=== PATIENT | female | born 1955 | race African-American/Black ===

== ENCOUNTER 2021-11-05 12:35 | Inpatient (IN) | payer MEDICAID, OTHER ==
[~2021-11-05] VITALS: Ht 168.9 cm; Wt 158.3 kg
[2021-11-05 14:00] LABS: Basophils # (auto) 0 10 ^3/uL (0-0.2); Basophils % (auto) 0.8 % (0.0-2.0); Hemoglobin 9.6 g/dL (12.2-16.2); Mean Corpuscular Volume 85.6 fL (80.0-100.0); Monocytes # (auto) 0.5 10 ^3/uL (0-1.3)
[2021-11-05 14:02] LABS: Eosinophils # (auto) 0.1 10 ^3/uL (0-0.8); Eosinophils % (auto) 0.9 % (0.0-7.0); Hematocrit 30.4 % (36.0-46.0); Lymphocytes # (auto) 1.4 10 ^3/uL (0.4-5.4); Lymphocytes % (auto) 24.4 % (10.0-50.0); Mean Corpuscular Hemoglobin 27.1 pg (28.0-32.0); Mean Corpuscular Hgb Conc. 31.7 g/dL (32.0-36.0); Monocytes % (auto) 8.4 % (0.0-12.0); Neutrophils # (auto) 3.7 10 ^3/uL (1.6-8.6); Neutrophils % (auto) 65.5 % (37.0-80.0); Nucleated Red Blood Cells % 0.5 %; Red Blood Cells 3.55 10^6/uL (4.0-5.20); Red Cell Distribution Width 19.4 % (11.8-14.3); White Blood Cell 5.7 10^3/uL (4.4-10.8)
[2021-11-05 14:12] LABS: INR 1.32 (0.9-1.15); Partial Thromboplastin Time 30.2 sec (23.6-33.0)
[2021-11-05 14:15] LABS: Calcium 8.3 mg/dL (8.5-10.1); Potassium 3.3 mmol/L (3.5-5.1)
[2021-11-05 14:18] LABS: Albumin 2.6 g/dL (3.4-5.0); BUN/Creatinine Ratio 10.7; Magnesium 2.9 mg/dL (1.6-2.6)
[2021-11-05 14:23] LABS: Bilirubin, Total 0.9 mg/dL (0.2-1.0); Total Protein 7.8 g/dL (6.4-8.2)
[2021-11-05] MEDS ORDERED: cefTRIAXone 1GM/50ML D5W 50 ML IV ONE (14:45)
[2021-11-05] MEDS ORDERED: AZITHROMYCIN 500MG/ 250ML 250 ML IV ONE (15:30)
[2021-11-05] MEDS ORDERED: MORPHINE SULFATE INJECTION 2 MG/ML SYRG IV PRN (17:15)
[2021-11-05] MEDS ORDERED: NITROGLYCERIN 0.4 MG SL TAB SL PRN (17:15)
[2021-11-05] MEDS ORDERED: HYDROcodone-ACET 5/325MG TAB PO PRN (17:15)
[2021-11-05] MEDS ORDERED: POTASSIUM CHL 20 Meq TABLET PO ONE (18:00)
[2021-11-05] MEDS ORDERED: DEXTROSE (50%) 50ML SYRG IV PRN (18:00)
[2021-11-05 18:33] VITALS: BP 183/112
[2021-11-05] MEDS: FUROSEMIDE 100 MG/10ML VIAL IV SCH (18:40)
[2021-11-05] MEDS: HYDROcodone-ACET 10/325MG TAB PO PRN (18:55)
[2021-11-05] MEDS: ACCU-CHEK COMFORT CURVE STRIP VI SCH (21:41)
[2021-11-05] MEDS: InsuLIN REG 1unit/0.01ml Soln (100units/ml) SC SCH (21:41)
[2021-11-05] MEDS ORDERED: ONDANSETRON HCL 4 MG/2 ML VIAL ONE (23:00)
[2021-11-05] MEDS: ONDANSETRON HCL 4 MG/2 ML VIAL IV PRN (23:16)
[2021-11-05] MEDS: MORPHINE SULFATE 4 MG/ML SYR/VIAL IV PRN (23:22)
[2021-11-06] MEDS: FUROSEMIDE 100 MG/10ML VIAL IV SCH ×2 (05:31→18:04)
[2021-11-06] MEDS: MORPHINE SULFATE 4 MG/ML SYR/VIAL IV PRN ×2 (05:34→19:28)
[2021-11-06 05:54] VITALS: BP 154/100
[2021-11-06 06:05] VITALS: BP 154/100
[2021-11-06] MEDS: ACCU-CHEK COMFORT CURVE STRIP VI SCH ×4 (06:12→22:00)
[2021-11-06] MEDS: InsuLIN REG 1unit/0.01ml Soln (100units/ml) SC SCH ×4 (06:12→22:00)
[2021-11-06] MEDS ORDERED: HYDROcodone-ACET 10/325MG TAB PO PRN (07:00)
[2021-11-06] MEDS ORDERED: INSULIN LISPRO (HUMAN) 100 UNITS/ML ML SC ONE (07:00)
[2021-11-06] MEDS ORDERED: hydrALAZINE HCL 25 MG TAB PO PRN (07:00)
[2021-11-06 08:00] VITALS: BP 147/82
[2021-11-06] MEDS: CLOPIDOGREL BISULFATE 75 MG TAB PO SCH (09:50)
[2021-11-06] MEDS: ASPirin 81 mg TAB PO SCH (09:50)
[2021-11-06] MEDS ORDERED: LOSARTAN POTASSIUM 50 MG TAB PO SCH (10:00)
[2021-11-06] MEDS ORDERED: cloNIDine HCL 0.1 MG TAB PO SCH (10:00)
[2021-11-06] MEDS ORDERED: FUROSEMIDE 40 MG TAB PO SCH (10:00)
[2021-11-06] MEDS ORDERED: PANTOPRAZOLE 40 MG TAB PO SCH (10:00)
[2021-11-06] MEDS ORDERED: CLOPIDOGREL BISULFATE 75 MG TAB PO SCH (10:00)
[2021-11-06] MEDS ORDERED: MORPHINE SULF 30 mg ER tab PO SCH (10:00)
[2021-11-06] MEDS ORDERED: QUEtiapine FUMARATE 100 MG TAB PO SCH (10:00)
[2021-11-06] MEDS ORDERED: ASPirin 81 mg TAB PO SCH (10:00)
[2021-11-06] MEDS: ONDANSETRON HCL 4 MG/2 ML VIAL IV PRN ×4 (10:44→18:04)
[2021-11-06] MEDS: AMITRIPTYLINE HCL 25 MG TAB PO SCH (10:48)
[2021-11-06] MEDS ORDERED: ALBU108A5 PO (10:49)
[2021-11-06] MEDS ORDERED: DICL1GEL50 TOP (10:49)
[2021-11-06] MEDS ORDERED: FURO40TA4 PO (10:49)
[2021-11-06] MEDS ORDERED: NICO14DI29 TOP (10:49)
[2021-11-06] MEDS ORDERED: HYDR-4798 PO (10:49)
[2021-11-06] MEDS ORDERED: QUET400T13 PO (10:49)
[2021-11-06] MEDS: ENOXAPARIN SOD 30 MG/0.3 ML SYRINGE SC SCH (10:49)
[2021-11-06] MEDS ORDERED: AMIT-256 PO (10:49)
[2021-11-06] MEDS ORDERED: INSU100I27 SC (10:49)
[2021-11-06] MEDS ORDERED: MORP30TA5 PO (10:49)
[2021-11-06] MEDS ORDERED: LOSA-69 PO (10:49)
[2021-11-06] MEDS ORDERED: ASPI-498 PO (10:49)
[2021-11-06] MEDS ORDERED: INSU1INJ19 SC (10:49)
[2021-11-06] MEDS ORDERED: CLOP75TA70 PO (10:49)
[2021-11-06] MEDS ORDERED: PANT40T PO (10:49)
[2021-11-06] MEDS ORDERED: MOME220A INH (10:49)
[2021-11-06] MEDS ORDERED: HYDR50TA15 PO (10:49)
[2021-11-06] MEDS ORDERED: CLON0.1T PO (10:49)
[2021-11-06] MEDS: ATORVASTATIN 20 MG TAB PO SCH (10:49)
[2021-11-06] MEDS ORDERED: ATOR40TA52 PO (10:49)
[2021-11-06 12:02] LABS: Basophils # (auto) 0.1 10 ^3/uL (0-0.2); Basophils % (auto) 1.1 % (0.0-2.0); Eosinophils # (auto) 0.1 10 ^3/uL (0-0.8); Eosinophils % (auto) 1.2 % (0.0-7.0); Hematocrit 29.6 % (36.0-46.0); Hemoglobin 9.6 g/dL (12.2-16.2); Lymphocytes # (auto) 1.7 10 ^3/uL (0.4-5.4); Lymphocytes % (auto) 32.8 % (10.0-50.0); Mean Corpuscular Hemoglobin 27.5 pg (28.0-32.0); Mean Corpuscular Hgb Conc. 32.3 g/dL (32.0-36.0); Mean Corpuscular Volume 85.1 fL (80.0-100.0); Monocytes # (auto) 0.6 10 ^3/uL (0-1.3); Monocytes % (auto) 10.6 % (0.0-12.0); Neutrophils # (auto) 2.9 10 ^3/uL (1.6-8.6); Neutrophils % (auto) 54.3 % (37.0-80.0); Nucleated Red Blood Cells % 0.5 %; Red Blood Cells 3.48 10^6/uL (4.0-5.20); Red Cell Distribution Width 19.4 % (11.8-14.3); White Blood Cell 5.3 10^3/uL (4.4-10.8)
[2021-11-06 12:16] LABS: Albumin 2.6 g/dL (3.4-5.0); Calcium 8.6 mg/dL (8.5-10.1); Potassium 4.2 mmol/L (3.5-5.1)
[2021-11-06 12:18] LABS: BUN/Creatinine Ratio 10.5
[2021-11-06 12:20] LABS: Bilirubin, Total 0.9 mg/dL (0.2-1.0); Total Protein 7.6 g/dL (6.4-8.2)
[2021-11-06 16:00] VITALS: BP 149/58
[2021-11-06 17:00] VITALS: BP 157/83
[2021-11-06 22:00] VITALS: BP 154/104
[2021-11-07 05:00] VITALS: BP 138/84
[2021-11-07] MEDS: MORPHINE SULFATE 4 MG/ML SYR/VIAL IV PRN ×2 (06:04→15:59)
[2021-11-07] MEDS: FUROSEMIDE 100 MG/10ML VIAL IV SCH ×2 (06:05→18:32)
[2021-11-07] MEDS: ACCU-CHEK COMFORT CURVE STRIP VI SCH ×3 (06:24→17:58)
[2021-11-07] MEDS: InsuLIN REG 1unit/0.01ml Soln (100units/ml) SC SCH ×4 (06:42→23:29)
[2021-11-07 07:54] VITALS: BP 160/105
[2021-11-07] MEDS: ASPirin 81 mg TAB PO SCH (09:22)
[2021-11-07] MEDS: CLOPIDOGREL BISULFATE 75 MG TAB PO SCH (09:22)
[2021-11-07] MEDS: ATORVASTATIN 20 MG TAB PO SCH (09:26)
[2021-11-07] MEDS: ENOXAPARIN SOD 30 MG/0.3 ML SYRINGE SC SCH (09:27)
[2021-11-07] MEDS: AMITRIPTYLINE HCL 25 MG TAB PO SCH (09:37)
[2021-11-07] MEDS ORDERED: DOCUSATE SOD 100 MG CAP PO PRN (10:30)
[2021-11-07] MEDS ORDERED: cloNIDine HCL 0.1 MG TAB PO PRN ×2 (10:30→16:15)
[2021-11-07] MEDS: LOSARTAN POTASSIUM 50 MG TAB PO SCH (11:00)
[2021-11-07] MEDS ORDERED: hydrALAZINE HCL 25 MG TAB PO SCH (12:00)
[2021-11-07 13:19] VITALS: BP 149/85
[2021-11-07 16:00] VITALS: BP 143/73
[2021-11-07] MEDS ORDERED: LABETALOL HCL 200 MG TAB PO SCH (16:00)
[2021-11-07] MEDS ORDERED: cloNIDine HCL 0.1 MG TAB PO ONE (16:00)
[2021-11-07] MEDS ORDERED: hydrALAZINE HCL 25 MG TAB PO PRN (18:00)
[2021-11-07] MEDS: hydrALAZINE HCL 25 MG TAB PO SCH (18:32)
[2021-11-07 22:00] VITALS: BP 146/90
[2021-11-07] MEDS: HYDROcodone-ACET 10/325MG TAB PO PRN (22:37)
[2021-11-08] VITALS: BP 158/101
[2021-11-08] MEDS: hydrALAZINE HCL 25 MG TAB PO SCH ×4 (00:37→17:16)
[2021-11-08] MEDS: MORPHINE SULFATE 4 MG/ML SYR/VIAL IV PRN ×5 (04:06→20:58)
[2021-11-08 05:00] VITALS: BP 147/93
[2021-11-08] MEDS: FUROSEMIDE 100 MG/10ML VIAL IV SCH ×2 (06:32→17:15)
[2021-11-08] MEDS: InsuLIN REG 1unit/0.01ml Soln (100units/ml) SC SCH ×3 (07:14→17:48)
[2021-11-08] MEDS: ASPirin 81 mg TAB PO SCH (08:40)
[2021-11-08] MEDS: ATORVASTATIN 20 MG TAB PO SCH (08:42)
[2021-11-08] MEDS: LOSARTAN POTASSIUM 50 MG TAB PO SCH (08:42)
[2021-11-08] MEDS: AMITRIPTYLINE HCL 25 MG TAB PO SCH (08:42)
[2021-11-08] MEDS: CLOPIDOGREL BISULFATE 75 MG TAB PO SCH ×2 (08:42→10:30)
[2021-11-08] MEDS: ENOXAPARIN SOD 30 MG/0.3 ML SYRINGE SC SCH (08:43)
[2021-11-08 09:00] VITALS: BP 180/100
[2021-11-08] MEDS ORDERED: cloNIDine HCL 0.1 MG TAB PO PRN (10:30)
[2021-11-08] MEDS ORDERED: LOSARTAN POTASSIUM 25 MG TAB PO ONE (10:30)
[2021-11-08] MEDS ORDERED: PANTOPRAZOLE 40 MG/10 ML VIAL INJ IV ONE (10:30)
[2021-11-08] MEDS: ACCU-CHEK COMFORT CURVE STRIP VI SCH ×3 (12:19→23:25)
[2021-11-08 13:00] VITALS: BP 163/95
[2021-11-08] MEDS: ONDANSETRON HCL 4 MG/2 ML VIAL IV PRN (15:08)
[2021-11-08 16:56] VITALS: BP 163/101
[2021-11-08] MEDS ORDERED: hydrALAZINE HCL 25 MG TAB PO SCH (18:00)
[2021-11-08 22:00] VITALS: BP 158/89
[2021-11-09] VITALS (7 sets, daily range): BP systolic 143–151; BP diastolic 80–99
[2021-11-09] MEDS: InsuLIN REG 1unit/0.01ml Soln (100units/ml) SC SCH ×3 (00:29→12:45)
[2021-11-09] MEDS: hydrALAZINE HCL 25 MG TAB PO SCH ×3 (00:29→12:45)
[2021-11-09] MEDS: FUROSEMIDE 100 MG/10ML VIAL IV SCH ×2 (06:00→06:34)
[2021-11-09] MEDS: ACCU-CHEK COMFORT CURVE STRIP VI SCH ×2 (07:18→12:45)
[2021-11-09] MEDS: MORPHINE SULFATE 4 MG/ML SYR/VIAL IV PRN (08:46)
[2021-11-09] MEDS: ASPirin 81 mg TAB PO SCH (09:43)
[2021-11-09] MEDS: CLOPIDOGREL BISULFATE 75 MG TAB PO SCH (09:44)
[2021-11-09] MEDS: ATORVASTATIN 20 MG TAB PO SCH (09:44)
[2021-11-09] MEDS: ENOXAPARIN SOD 30 MG/0.3 ML SYRINGE SC SCH (09:44)
[2021-11-09] MEDS: AMITRIPTYLINE HCL 25 MG TAB PO SCH (09:45)
[2021-11-09] MEDS ORDERED: PANTOPRAZOLE 40 MG/10 ML VIAL INJ IV SCH (10:00)
[2021-11-09] MEDS ORDERED: LOSARTAN POTASSIUM 50 MG TAB PO SCH (10:00)
== END 2021-11-09 12:45 | disposition home or self-care (01) | DRG 194 ==
LOC: EDBD 12:35 → ER 12:55 → TELE 17:14 → TELE-WESTW 11-06 04:50
PROVIDERS: ADMIT Internal Medicine; ATTEND Family Medicine
PROC: 5A09357 Assistance with Respiratory Ventilation, Less than 24 Consecutive Hours, Continuous Positive Airway Pressure (ICD-10-PCS; principal; 2021-11-05)
DX: I13.0 Hypertensive heart and chronic kidney disease with heart failure and stage 1 through stage 4 chronic kidney disease, or unspecified chronic kidney disease (principal); J96.01 Acute respiratory failure with hypoxia; N17.9 Acute kidney failure, unspecified; E44.0 Moderate protein-calorie malnutrition; E87.1 Hypo-osmolality and hyponatremia; D68.59 Other primary thrombophilia; I27.20 Pulmonary hypertension, unspecified; I50.43 Acute on chronic combined systolic (congestive) and diastolic (congestive) heart failure; N18.9 Chronic kidney disease, unspecified; E87.6 Hypokalemia; I16.0 Hypertensive urgency; E66.01 Morbid (severe) obesity due to excess calories; Z68.43 Body mass index [BMI] 50.0-59.9, adult; D64.9 Anemia, unspecified; E11.22 Type 2 diabetes mellitus with diabetic chronic kidney disease; Z20.822 Contact with and (suspected) exposure to COVID-19; F32.A Depression, unspecified; G89.4 Chronic pain syndrome; I25.10 Atherosclerotic heart disease of native coronary artery without angina pectoris; I34.0 Nonrheumatic mitral (valve) insufficiency; K21.9 Gastro-esophageal reflux disease without esophagitis; Z79.01 Long term (current) use of anticoagulants; Z91.14 Patient's other noncompliance with medication regimen
CPT/HCPCS: 36415; 36600; 51702; 71045; 80053; 82805; 82962; 83036; 83735; 83880; 84484; 85025; 85610; 85730; 87426; 93005; 93306; 94660; 96365; 96367; 99291; C9113; G0378; J0696; J1815; J2405

== ENCOUNTER 2021-11-11 23:33 | Inpatient (IN) | payer MEDICAID ==
[~2021-11-11] VITALS: Ht 172.7 cm; Wt 136.9 kg
[~2021-11-11 23:33] MED LIST: ALBU108A5 PO; AMIT-256 PO; ASPI-498 PO; ATOR40TA52 PO; CLON0.1T PO; CLOP75TA70 PO; DICL1GEL50 TOP; FURO40TA4 PO; HYDR-4798 PO; HYDR50TA15 PO; INSU100I27 SC; INSU1INJ19 SC; LOSA-69 PO; MOME220A INH; MORP30TA5 PO; NICO14DI29 TOP; PANT40T PO; QUET400T13 PO
[2021-11-12 01:28] LABS: Basophils # (auto) 0.1 10 ^3/uL (0-0.2); Basophils % (auto) 1.1 % (0.0-2.0); Eosinophils # (auto) 0.1 10 ^3/uL (0-0.8); Eosinophils % (auto) 1.9 % (0.0-7.0); Hematocrit 28.9 % (36.0-46.0); Hemoglobin 9.4 g/dL (12.2-16.2); Lymphocytes # (auto) 1.3 10 ^3/uL (0.4-5.4); Lymphocytes % (auto) 21.9 % (10.0-50.0); Mean Corpuscular Hgb Conc. 32.4 g/dL (32.0-36.0); Mean Corpuscular Volume 83.5 fL (80.0-100.0); Monocytes # (auto) 0.7 10 ^3/uL (0-1.3); Monocytes % (auto) 11.2 % (0.0-12.0); Neutrophils # (auto) 3.9 10 ^3/uL (1.6-8.6); Neutrophils % (auto) 63.9 % (37.0-80.0); Nucleated Red Blood Cells % 0.2 %; Red Blood Cells 3.47 10^6/uL (4.0-5.20); Red Cell Distribution Width 19.5 % (11.8-14.3); White Blood Cell 6.1 10^3/uL (4.4-10.8)
[2021-11-12] MEDS ORDERED: FUROSEMIDE 100 MG/10ML VIAL IV ONE ×2 (01:45→21:45)
[2021-11-12] MEDS ORDERED: HYDROcodone-ACET 5/325MG TAB PO ONE ×4 (01:45→20:00)
[2021-11-12] MEDS ORDERED: MAGNESIUM CITRATE SOLUTION 300 ML BTL PO ONE (01:45)
[2021-11-12 01:52] LABS: Urine Bacteria NONE SEEN /hpf (None Seen); Urine Blood Negative /uL (Negative); Urine Specific Gravity 1.006 (1.001-1.035); Urine WBC <1 /hpf (0 - 5)
[2021-11-12 03:24] LABS: Albumin 2.8 g/dL (3.4-5.0); BUN/Creatinine Ratio 10.2
[2021-11-12 04:22] LABS: Bilirubin, Total 0.8 mg/dL (0.2-1.0); Total Protein 8.2 g/dL (6.4-8.2)
[2021-11-12] MEDS ORDERED: POLYETHYLENE GLYCOL 17 GM PWDR PO ONE (06:00)
[2021-11-13] MEDS ORDERED: MORPHINE SULFATE INJECTION 2 MG/ML SYRG IV PRN (09:00)
[2021-11-13] MEDS ORDERED: ACETAMINOPHEN 325 MG TAB PO PRN ×2 (09:00)
[2021-11-13] MEDS ORDERED: ONDANSETRON HCL 4 MG/2 ML VIAL IV PRN (09:00)
[2021-11-13] MEDS ORDERED: NITROGLYCERIN 0.4 MG SL TAB SL PRN (09:00)
[2021-11-13] MEDS ORDERED: DEXTROSE (50%) 50ML SYRG IV PRN (09:30)
[2021-11-13] MEDS: HEPARIN SODIUM (PORCINE) 5000 UNITS/ML 1ML VIAL SC SCH ×2 (09:35→23:24)
[2021-11-13] MEDS: PANTOPRAZOLE 40 MG/10 ML VIAL INJ IV SCH (09:36)
[2021-11-13] MEDS: AZITHROMYCIN 500MG/ 250ML 250 ML IV SCH (09:36)
[2021-11-13] MEDS ORDERED: ALBUTEROL SULF 2.5 MG/0.5ML(0.5%) NEB SOLN NEB PRN (09:45)
[2021-11-13] MEDS ORDERED: ALBUTEROL SULF 2.5 MG/0.5ML(0.5%) NEB SOLN ONE (09:57)
[2021-11-13] MEDS ORDERED: FUROSEMIDE 40 MG/4 ML VIAL IV SCH (10:00)
[2021-11-13] MEDS ORDERED: LOSARTAN POTASSIUM 50 MG TAB PO SCH (10:00)
[2021-11-13] MEDS: ACCU-CHEK COMFORT CURVE STRIP VI SCH ×3 (11:30→23:24)
[2021-11-13] MEDS: InsuLIN REG 1unit/0.01ml Soln (100units/ml) SC SCH ×3 (11:30→23:25)
[2021-11-13] MEDS: ASPirin 81 mg TAB PO SCH (11:45)
[2021-11-13] MEDS: LABETALOL HCL 200 MG TAB PO SCH ×2 (11:45→23:23)
[2021-11-13] MEDS: CLOPIDOGREL BISULFATE 75 MG TAB PO SCH (11:46)
[2021-11-13] MEDS: HYDROcodone-ACET 5/325MG TAB PO PRN (11:52)
[2021-11-13] MEDS ORDERED: hydrALAZINE HCL 25 MG TAB PO SCH (12:00)
[2021-11-13 13:12] VITALS: BP 141/91
[2021-11-13 13:46] VITALS: BP 141/91
[2021-11-13] MEDS: SODIUM CHLOR 0.9% PF (SALINE LOCK) 10ML VIAL/SYR IV SCH ×2 (14:00→23:20)
[2021-11-13 14:12] VITALS: BP 141/91
[2021-11-13 14:29] VITALS: BP 144/90
[2021-11-13 16:53] VITALS: BP 159/77
[2021-11-13] MEDS: FUROSEMIDE 100 MG/10ML VIAL IV SCH (18:52)
[2021-11-13 22:00] VITALS: BP 137/72
[2021-11-13] MEDS: AMITRIPTYLINE HCL 25 MG TAB PO SCH (23:20)
[2021-11-13] MEDS: SACUBITRIL-VALSARTAN 24mg/26mg TAB PO SCH (23:22)
[2021-11-13] MEDS: ATORVASTATIN 20 MG TAB PO SCH (23:23)
[2021-11-14 05:00] VITALS: BP 123/72
[2021-11-14] MEDS: SODIUM CHLOR 0.9% PF (SALINE LOCK) 10ML VIAL/SYR IV SCH ×3 (05:12→22:23)
[2021-11-14] MEDS ORDERED: SODIUM CHLORIDE 0.9 % NEB SOLN 3ML NEB ONE (05:37)
[2021-11-14 06:00] LABS: Basophils # (auto) 0 10 ^3/uL (0-0.2); Basophils % (auto) 1.1 % (0.0-2.0); Eosinophils # (auto) 0.1 10 ^3/uL (0-0.8); Hematocrit 28.2 % (36.0-46.0); Hemoglobin 9.1 g/dL (12.2-16.2); Lymphocytes # (auto) 1.6 10 ^3/uL (0.4-5.4); Lymphocytes % (auto) 36.1 % (10.0-50.0); Mean Corpuscular Hgb Conc. 32.2 g/dL (32.0-36.0); Mean Corpuscular Volume 83.9 fL (80.0-100.0); Monocytes # (auto) 0.5 10 ^3/uL (0-1.3); Monocytes % (auto) 11.7 % (0.0-12.0); Neutrophils # (auto) 2.1 10 ^3/uL (1.6-8.6); Neutrophils % (auto) 48.1 % (37.0-80.0); Nucleated Red Blood Cells % 0.1 %; Red Blood Cells 3.36 10^6/uL (4.0-5.20); Red Cell Distribution Width 19.4 % (11.8-14.3); White Blood Cell 4.4 10^3/uL (4.4-10.8)
[2021-11-14 06:27] LABS: Calcium 8.8 mg/dL (8.5-10.1); Potassium 4.2 mmol/L (3.5-5.1)
[2021-11-14 06:30] LABS: Albumin 2.5 g/dL (3.4-5.0); BUN/Creatinine Ratio 10.8
[2021-11-14] MEDS: FUROSEMIDE 100 MG/10ML VIAL IV SCH (06:30)
[2021-11-14] MEDS: ACCU-CHEK COMFORT CURVE STRIP VI SCH ×4 (06:31→22:25)
[2021-11-14 06:33] LABS: Bilirubin, Total 0.6 mg/dL (0.2-1.0); Total Protein 7.5 g/dL (6.4-8.2)
[2021-11-14] MEDS: HYDROcodone-ACET 5/325MG TAB PO PRN ×2 (06:43→22:27)
[2021-11-14] MEDS: InsuLIN REG 1unit/0.01ml Soln (100units/ml) SC SCH ×4 (06:47→22:32)
[2021-11-14 09:00] VITALS: BP 123/77
[2021-11-14] MEDS: cefTRIAXone 1GM/50ML D5W 50 ML IV SCH (09:31)
[2021-11-14] MEDS: PANTOPRAZOLE 40 MG/10 ML VIAL INJ IV SCH (09:31)
[2021-11-14] MEDS: CLOPIDOGREL BISULFATE 75 MG TAB PO SCH (09:32)
[2021-11-14] MEDS: LABETALOL HCL 200 MG TAB PO SCH ×2 (09:32→22:25)
[2021-11-14] MEDS: ASPirin 81 mg TAB PO SCH (09:32)
[2021-11-14] MEDS: SACUBITRIL-VALSARTAN 24mg/26mg TAB PO SCH ×2 (09:32→22:23)
[2021-11-14] MEDS: HEPARIN SODIUM (PORCINE) 5000 UNITS/ML 1ML VIAL SC SCH ×2 (09:33→22:32)
[2021-11-14] MEDS: AZITHROMYCIN 500MG/ 250ML 250 ML IV SCH (10:39)
[2021-11-14 13:00] VITALS: BP 113/82
[2021-11-14 13:40] LABS: Protein, Urine 69.7 mg/dL (0.0-11.9)
[2021-11-14 13:42] LABS: Creatinine, Urine 34 mg/dL (30.0-125.0); Sodium Urine 61 mmol/L (40-220)
[2021-11-14 17:00] VITALS: BP 135/80
[2021-11-14] MEDS: MORPHINE SULFATE 4 MG/ML SYR/VIAL IV PRN (17:09)
[2021-11-14] MEDS: FUROSEMIDE 40 MG/4 ML VIAL IV SCH (17:09)
[2021-11-14 22:16] VITALS: BP 123/87
[2021-11-14] MEDS: AMITRIPTYLINE HCL 25 MG TAB PO SCH (22:23)
[2021-11-14] MEDS: ATORVASTATIN 20 MG TAB PO SCH (22:23)
[2021-11-15] MEDS: MORPHINE SULFATE 4 MG/ML SYR/VIAL IV PRN ×4 (01:04→21:32)
[2021-11-15 04:22] VITALS: BP 117/75
[2021-11-15] MEDS: SODIUM CHLOR 0.9% PF (SALINE LOCK) 10ML VIAL/SYR IV SCH ×3 (04:50→22:44)
[2021-11-15] MEDS: ACCU-CHEK COMFORT CURVE STRIP VI SCH ×4 (04:50→22:43)
[2021-11-15] MEDS: FUROSEMIDE 40 MG/4 ML VIAL IV SCH ×2 (04:51→18:29)
[2021-11-15] MEDS: InsuLIN REG 1unit/0.01ml Soln (100units/ml) SC SCH ×4 (05:09→22:42)
[2021-11-15 06:40] LABS: Basophils # (auto) 0.1 10 ^3/uL (0-0.2); Lymphocytes # (auto) 1.7 10 ^3/uL (0.4-5.4); Monocytes # (auto) 0.5 10 ^3/uL (0-1.3)
[2021-11-15 06:42] LABS: Basophils % (auto) 1.2 % (0.0-2.0); Eosinophils # (auto) 0.1 10 ^3/uL (0-0.8); Eosinophils % (auto) 3.5 % (0.0-7.0); Hematocrit 29.4 % (36.0-46.0); Hemoglobin 9.5 g/dL (12.2-16.2); Lymphocytes % (auto) 40.9 % (10.0-50.0); Mean Corpuscular Hemoglobin 27.1 pg (28.0-32.0); Mean Corpuscular Hgb Conc. 32.5 g/dL (32.0-36.0); Mean Corpuscular Volume 83.4 fL (80.0-100.0); Monocytes % (auto) 11.7 % (0.0-12.0); Neutrophils # (auto) 1.8 10 ^3/uL (1.6-8.6); Neutrophils % (auto) 42.7 % (37.0-80.0); Nucleated Red Blood Cells % 0.1 %; Red Blood Cells 3.53 10^6/uL (4.0-5.20); White Blood Cell 4.3 10^3/uL (4.4-10.8)
[2021-11-15 07:00] LABS: Albumin 2.7 g/dL (3.4-5.0); Calcium 8.5 mg/dL (8.5-10.1); Potassium 3.9 mmol/L (3.5-5.1)
[2021-11-15 07:02] LABS: BUN/Creatinine Ratio 11.6
[2021-11-15 07:05] LABS: Bilirubin, Total 0.5 mg/dL (0.2-1.0); Total Protein 7.9 g/dL (6.4-8.2)
[2021-11-15 09:00] VITALS: BP 123/82
[2021-11-15] MEDS: PANTOPRAZOLE 40 MG/10 ML VIAL INJ IV SCH (09:33)
[2021-11-15] MEDS: ASPirin 81 mg TAB PO SCH (09:33)
[2021-11-15] MEDS: LABETALOL HCL 200 MG TAB PO SCH ×2 (09:34→22:00)
[2021-11-15] MEDS: CLOPIDOGREL BISULFATE 75 MG TAB PO SCH (09:34)
[2021-11-15] MEDS: SACUBITRIL-VALSARTAN 24mg/26mg TAB PO SCH ×2 (09:34→22:33)
[2021-11-15] MEDS: HEPARIN SODIUM (PORCINE) 5000 UNITS/ML 1ML VIAL SC SCH ×2 (09:36→22:50)
[2021-11-15] MEDS: cefTRIAXone 1GM/50ML D5W 50 ML IV SCH (09:36)
[2021-11-15] MEDS: AZITHROMYCIN 500MG/ 250ML 250 ML IV SCH (09:36)
[2021-11-15] MEDS: DOCUSATE SOD 100 MG CAP PO PRN (09:38)
[2021-11-15] MEDS: FERROUS SULFATE 325mg EC TAB PO SCH (09:45)
[2021-11-15] MEDS: ALLOPURINOL 100 MG TAB PO SCH (09:45)
[2021-11-15 10:46] LABS: % Iron Saturation 8.2 % (15-50)
[2021-11-15 13:00] VITALS: BP 128/83
[2021-11-15 17:00] VITALS: BP 113/73
[2021-11-15 22:00] VITALS: BP 98/60
[2021-11-15] MEDS: ATORVASTATIN 20 MG TAB PO SCH (22:34)
[2021-11-15] MEDS: AMITRIPTYLINE HCL 25 MG TAB PO SCH (22:43)
[2021-11-16] MEDS: MORPHINE SULFATE 4 MG/ML SYR/VIAL IV PRN ×5 (01:43→20:00)
[2021-11-16 03:55] VITALS: BP 118/70
[2021-11-16 05:00] VITALS: BP 139/139
[2021-11-16 05:47] LABS: Basophils # (auto) 0.1 10 ^3/uL (0-0.2); Basophils % (auto) 1.4 % (0.0-2.0); Eosinophils # (auto) 0.1 10 ^3/uL (0-0.8); Hematocrit 29.9 % (36.0-46.0); Hemoglobin 10.2 g/dL (12.2-16.2); Lymphocytes # (auto) 1.6 10 ^3/uL (0.4-5.4); Lymphocytes % (auto) 37.6 % (10.0-50.0); Mean Corpuscular Hemoglobin 28.5 pg (28.0-32.0); Mean Corpuscular Hgb Conc. 34.1 g/dL (32.0-36.0); Mean Corpuscular Volume 83.7 fL (80.0-100.0); Monocytes # (auto) 0.5 10 ^3/uL (0-1.3); Monocytes % (auto) 11.5 % (0.0-12.0); Neutrophils # (auto) 1.9 10 ^3/uL (1.6-8.6); Neutrophils % (auto) 46.5 % (37.0-80.0); Nucleated Red Blood Cells % 0.2 %; Red Blood Cells 3.57 10^6/uL (4.0-5.20); White Blood Cell 4.2 10^3/uL (4.4-10.8)
[2021-11-16 06:13] LABS: Albumin 2.7 g/dL (3.4-5.0); Calcium 8.3 mg/dL (8.5-10.1)
[2021-11-16 06:18] LABS: BUN/Creatinine Ratio 11.7; Bilirubin, Total 0.5 mg/dL (0.2-1.0)
[2021-11-16] MEDS: FUROSEMIDE 40 MG/4 ML VIAL IV SCH ×2 (06:20→18:05)
[2021-11-16] MEDS: InsuLIN REG 1unit/0.01ml Soln (100units/ml) SC SCH ×4 (06:21→22:00)
[2021-11-16] MEDS: SODIUM CHLOR 0.9% PF (SALINE LOCK) 10ML VIAL/SYR IV SCH ×3 (06:21→22:00)
[2021-11-16] MEDS: ACCU-CHEK COMFORT CURVE STRIP VI SCH ×4 (06:21→22:00)
[2021-11-16] MEDS: cefTRIAXone 1GM/50ML D5W 50 ML IV SCH (08:46)
[2021-11-16] MEDS: PANTOPRAZOLE 40 MG/10 ML VIAL INJ IV SCH (08:47)
[2021-11-16] MEDS: ASPirin 81 mg TAB PO SCH (08:48)
[2021-11-16] MEDS: CLOPIDOGREL BISULFATE 75 MG TAB PO SCH (08:48)
[2021-11-16] MEDS: SACUBITRIL-VALSARTAN 24mg/26mg TAB PO SCH ×2 (08:48→22:00)
[2021-11-16] MEDS: ALLOPURINOL 100 MG TAB PO SCH (08:48)
[2021-11-16] MEDS: FERROUS SULFATE 325mg EC TAB PO SCH (08:48)
[2021-11-16] MEDS: LABETALOL HCL 200 MG TAB PO SCH ×2 (08:48→22:00)
[2021-11-16] MEDS: HYDROcodone-ACET 5/325MG TAB PO PRN ×2 (08:49→15:50)
[2021-11-16 09:00] VITALS: BP 150/117
[2021-11-16] MEDS: HEPARIN SODIUM (PORCINE) 5000 UNITS/ML 1ML VIAL SC SCH ×2 (09:05→22:00)
[2021-11-16] MEDS: AZITHROMYCIN 500MG/ 250ML 250 ML IV SCH (10:14)
[2021-11-16 13:00] VITALS: BP 134/96
[2021-11-16] MEDS: DOCUSATE SOD 100 MG CAP PO PRN (13:30)
[2021-11-16 17:00] VITALS: BP 144/94
[2021-11-16 22:00] VITALS: BP 158/93
[2021-11-16] MEDS: ATORVASTATIN 20 MG TAB PO SCH (22:00)
[2021-11-16] MEDS: AMITRIPTYLINE HCL 25 MG TAB PO SCH (22:00)
[2021-11-17] MEDS: MORPHINE SULFATE 4 MG/ML SYR/VIAL IV PRN ×4 (01:41→20:35)
[2021-11-17] MEDS: DOCUSATE SOD 100 MG CAP PO PRN (04:43)
[2021-11-17 05:00] VITALS: BP 163/84
[2021-11-17 06:15] LABS: Basophils # (auto) 0.1 10 ^3/uL (0-0.2); Basophils % (auto) 1.7 % (0.0-2.0); Eosinophils # (auto) 0.1 10 ^3/uL (0-0.8); Eosinophils % (auto) 2.6 % (0.0-7.0); Hematocrit 31.1 % (36.0-46.0); Lymphocytes # (auto) 1.5 10 ^3/uL (0.4-5.4); Lymphocytes % (auto) 35.1 % (10.0-50.0); Mean Corpuscular Hemoglobin 27.6 pg (28.0-32.0); Mean Corpuscular Hgb Conc. 32.2 g/dL (32.0-36.0); Mean Corpuscular Volume 85.7 fL (80.0-100.0); Monocytes # (auto) 0.5 10 ^3/uL (0-1.3); Neutrophils # (auto) 2.1 10 ^3/uL (1.6-8.6); Neutrophils % (auto) 48.6 % (37.0-80.0); Nucleated Red Blood Cells % 0.2 %; Red Blood Cells 3.63 10^6/uL (4.0-5.20); White Blood Cell 4.4 10^3/uL (4.4-10.8)
[2021-11-17] MEDS: SODIUM CHLOR 0.9% PF (SALINE LOCK) 10ML VIAL/SYR IV SCH ×3 (06:18→22:28)
[2021-11-17 06:19] LABS: Calcium 8.9 mg/dL (8.5-10.1); Potassium 3.6 mmol/L (3.5-5.1)
[2021-11-17] MEDS: FUROSEMIDE 40 MG/4 ML VIAL IV SCH ×2 (06:22→17:49)
[2021-11-17] MEDS: hydrALAZINE HCL 20 MG/ML VL IV PRN (06:22)
[2021-11-17 06:23] LABS: BUN/Creatinine Ratio 12.8; Bilirubin, Total 0.6 mg/dL (0.2-1.0); Total Protein 8.6 g/dL (6.4-8.2)
[2021-11-17] MEDS: InsuLIN REG 1unit/0.01ml Soln (100units/ml) SC SCH ×4 (06:53→22:22)
[2021-11-17] MEDS: ACCU-CHEK COMFORT CURVE STRIP VI SCH ×4 (07:03→22:00)
[2021-11-17 09:00] VITALS: BP 158/92
[2021-11-17] MEDS: FERROUS SULFATE 325mg EC TAB PO SCH (09:28)
[2021-11-17] MEDS: ASPirin 81 mg TAB PO SCH (09:28)
[2021-11-17] MEDS: PANTOPRAZOLE 40 MG/10 ML VIAL INJ IV SCH (09:28)
[2021-11-17] MEDS: cefTRIAXone 1GM/50ML D5W 50 ML IV SCH (09:28)
[2021-11-17] MEDS: SACUBITRIL-VALSARTAN 24mg/26mg TAB PO SCH ×2 (09:28→22:00)
[2021-11-17] MEDS: ALLOPURINOL 100 MG TAB PO SCH (09:29)
[2021-11-17] MEDS: LABETALOL HCL 200 MG TAB PO SCH ×2 (09:29→22:00)
[2021-11-17] MEDS: HEPARIN SODIUM (PORCINE) 5000 UNITS/ML 1ML VIAL SC SCH ×2 (09:29→22:00)
[2021-11-17] MEDS: CLOPIDOGREL BISULFATE 75 MG TAB PO SCH (09:29)
[2021-11-17] MEDS ORDERED: FLEET MINERAL OIL ENEMA 133 ML PR ONE (09:30)
[2021-11-17] MEDS: HYDROcodone-ACET 5/325MG TAB PO PRN (09:30)
[2021-11-17] MEDS: AZITHROMYCIN 500MG/ 250ML 250 ML IV SCH (10:00)
[2021-11-17 13:00] VITALS: BP 144/84
[2021-11-17 17:00] VITALS: BP 158/95
[2021-11-17 22:00] VITALS: BP 139/79
[2021-11-17] MEDS: TEMAZEPAM 15 MG CAP PO PRN (22:00)
[2021-11-17] MEDS: AMITRIPTYLINE HCL 25 MG TAB PO SCH (22:00)
[2021-11-17] MEDS: ATORVASTATIN 20 MG TAB PO SCH (22:00)
[2021-11-18] VITALS (10 sets, daily range): BP systolic 146–185; BP diastolic 72–106
[2021-11-18] MEDS: HYDROcodone-ACET 5/325MG TAB PO PRN (02:05)
[2021-11-18] MEDS: SODIUM CHLOR 0.9% PF (SALINE LOCK) 10ML VIAL/SYR IV SCH ×3 (06:13→22:24)
[2021-11-18] MEDS: FUROSEMIDE 40 MG/4 ML VIAL IV SCH ×2 (06:15→17:09)
[2021-11-18] MEDS: MORPHINE SULFATE 4 MG/ML SYR/VIAL IV PRN ×3 (06:15→20:58)
[2021-11-18] MEDS: InsuLIN REG 1unit/0.01ml Soln (100units/ml) SC SCH ×4 (06:50→22:27)
[2021-11-18] MEDS: ACCU-CHEK COMFORT CURVE STRIP VI SCH ×4 (06:50→22:26)
[2021-11-18 07:01] LABS: INR 1.26 (0.9-1.15); Partial Thromboplastin Time 31.6 sec (23.6-33.0)
[2021-11-18] MEDS: HEPARIN SODIUM (PORCINE) 5000 UNITS/ML 1ML VIAL SC SCH ×2 (10:00→22:26)
[2021-11-18] MEDS ORDERED: DOCUSATE ORAL LIQUID 100 MG/10 ML UD GT ONE ×2 (10:30→17:00)
[2021-11-18] MEDS ORDERED: SENNA 8.6 MG TAB PO ONE (10:30)
[2021-11-18] MEDS ORDERED: SENNA 8.6 MG TAB PO PRN (10:30)
[2021-11-18] MEDS: PANTOPRAZOLE 40 MG/10 ML VIAL INJ IV SCH (10:39)
[2021-11-18] MEDS ORDERED: IODIXANOL 320MG/ML 100ML BTL IV ONE (13:41)
[2021-11-18] MEDS ORDERED: LIDOCAINE 2%HCL (LOCAL ANESTH.) INJ 10ml MDV ONE ×2 (13:41→14:16)
[2021-11-18] MEDS ORDERED: SODIUM CHL 0.9% 0 ML ONE (14:03)
[2021-11-18] MEDS ORDERED: ANGIOMAX 250 MG VIAL IV ONE (14:03)
[2021-11-18] MEDS ORDERED: fentaNYL CITRATE 100 MCG/2 ML VL ONE ×2 (14:03→14:37)
[2021-11-18] MEDS ORDERED: MIDAZOLAM HCL 2MG/2ML 2ml VIAL (1mg/ml) ONE ×2 (14:03→14:39)
[2021-11-18] MEDS ORDERED: VERAPAMIL 2.5MG/ML INJ 2ML VIAL IV ONE (14:14)
[2021-11-18] MEDS ORDERED: HEPARIN SODIUM (PORCINE) 5000 UNITS/ML 1ML VIAL ONE (14:14)
[2021-11-18] MEDS: hydrALAZINE HCL 20 MG/ML VL IV PRN (15:51)
[2021-11-18] MEDS: ASPirin 81 mg TAB PO SCH (17:06)
[2021-11-18] MEDS: cefTRIAXone 1GM/50ML D5W 50 ML IV SCH (17:06)
[2021-11-18] MEDS: LABETALOL HCL 200 MG TAB PO SCH ×2 (17:07→22:25)
[2021-11-18] MEDS: FERROUS SULFATE 325mg EC TAB PO SCH (17:07)
[2021-11-18] MEDS: CLOPIDOGREL BISULFATE 75 MG TAB PO SCH (17:07)
[2021-11-18] MEDS: ALLOPURINOL 100 MG TAB PO SCH (17:07)
[2021-11-18] MEDS: SACUBITRIL-VALSARTAN 24mg/26mg TAB PO SCH ×2 (17:08→22:24)
[2021-11-18] MEDS: AZITHROMYCIN 500MG/ 250ML 250 ML IV SCH (20:36)
[2021-11-18] MEDS: AMITRIPTYLINE HCL 25 MG TAB PO SCH (22:24)
[2021-11-18] MEDS: ATORVASTATIN 20 MG TAB PO SCH (22:24)
[2021-11-19] MEDS: MORPHINE SULFATE 4 MG/ML SYR/VIAL IV PRN ×4 (01:13→20:00)
[2021-11-19 04:40] VITALS: BP 104/69
[2021-11-19 05:53] LABS: Basophils # (auto) 0 10 ^3/uL (0-0.2); Basophils % (auto) 0.4 % (0.0-2.0); Eosinophils # (auto) 0.1 10 ^3/uL (0-0.8); Eosinophils % (auto) 2.1 % (0.0-7.0); Hematocrit 29.2 % (36.0-46.0); Hemoglobin 9.4 g/dL (12.2-16.2); Lymphocytes # (auto) 1.6 10 ^3/uL (0.4-5.4); Lymphocytes % (auto) 32.9 % (10.0-50.0); Mean Corpuscular Hemoglobin 26.4 pg (28.0-32.0); Mean Corpuscular Hgb Conc. 32.1 g/dL (32.0-36.0); Monocytes # (auto) 0.7 10 ^3/uL (0-1.3); Monocytes % (auto) 14.8 % (0.0-12.0); Neutrophils # (auto) 2.4 10 ^3/uL (1.6-8.6); Neutrophils % (auto) 49.8 % (37.0-80.0); Nucleated Red Blood Cells % 0.2 %; Red Blood Cells 3.56 10^6/uL (4.0-5.20); Red Cell Distribution Width 19.1 % (11.8-14.3); White Blood Cell 4.8 10^3/uL (4.4-10.8)
[2021-11-19] MEDS: SODIUM CHLOR 0.9% PF (SALINE LOCK) 10ML VIAL/SYR IV SCH ×3 (06:07→22:02)
[2021-11-19] MEDS: FUROSEMIDE 40 MG/4 ML VIAL IV SCH ×2 (06:07→17:48)
[2021-11-19 06:15] LABS: Calcium 8.9 mg/dL (8.5-10.1); Potassium 3.7 mmol/L (3.5-5.1)
[2021-11-19 06:19] LABS: BUN/Creatinine Ratio 12.7
[2021-11-19] MEDS: InsuLIN REG 1unit/0.01ml Soln (100units/ml) SC SCH ×4 (06:34→22:25)
[2021-11-19] MEDS: ACCU-CHEK COMFORT CURVE STRIP VI SCH ×4 (06:36→22:26)
[2021-11-19 09:00] VITALS: BP 137/76
[2021-11-19] MEDS: DOCUSATE ORAL LIQUID 100 MG/10 ML UD GT SCH (09:20)
[2021-11-19] MEDS: PANTOPRAZOLE 40 MG/10 ML VIAL INJ IV SCH (09:20)
[2021-11-19] MEDS: SACUBITRIL-VALSARTAN 24mg/26mg TAB PO SCH ×2 (09:21→22:02)
[2021-11-19] MEDS: ASPirin 81 mg TAB PO SCH (09:21)
[2021-11-19] MEDS: FERROUS SULFATE 325mg EC TAB PO SCH (09:21)
[2021-11-19] MEDS: CLOPIDOGREL BISULFATE 75 MG TAB PO SCH (09:22)
[2021-11-19] MEDS: ALLOPURINOL 100 MG TAB PO SCH (09:22)
[2021-11-19] MEDS: LABETALOL HCL 200 MG TAB PO SCH ×2 (09:22→22:22)
[2021-11-19] MEDS: HEPARIN SODIUM (PORCINE) 5000 UNITS/ML 1ML VIAL SC SCH ×2 (09:24→22:26)
[2021-11-19 13:00] VITALS: BP 118/74
[2021-11-19 17:00] VITALS: BP 140/71
[2021-11-19] MEDS: cefTRIAXone 1GM/50ML D5W 50 ML IV SCH (17:47)
[2021-11-19] MEDS: AZITHROMYCIN 500MG/ 250ML 250 ML IV SCH (20:48)
[2021-11-19 22:00] VITALS: BP 97/58
[2021-11-19] MEDS: AMITRIPTYLINE HCL 25 MG TAB PO SCH (22:02)
[2021-11-19] MEDS: ATORVASTATIN 20 MG TAB PO SCH (22:03)
[2021-11-20] MEDS: MORPHINE SULFATE 4 MG/ML SYR/VIAL IV PRN ×6 (00:26→22:54)
[2021-11-20 05:00] VITALS: BP 141/80
[2021-11-20] MEDS: FUROSEMIDE 40 MG/4 ML VIAL IV SCH ×2 (05:54→17:33)
[2021-11-20] MEDS: SODIUM CHLOR 0.9% PF (SALINE LOCK) 10ML VIAL/SYR IV SCH ×3 (06:21→22:00)
[2021-11-20 06:56] LABS: Basophils # (auto) 0.1 10 ^3/uL (0-0.2); Eosinophils # (auto) 0.1 10 ^3/uL (0-0.8); Monocytes # (auto) 0.7 10 ^3/uL (0-1.3); Neutrophils # (auto) 1.7 10 ^3/uL (1.6-8.6); Nucleated Red Blood Cells % 0.3 %
[2021-11-20 06:59] LABS: Basophils % (auto) 1.3 % (0.0-2.0); Eosinophils % (auto) 2.5 % (0.0-7.0); Hematocrit 28.8 % (36.0-46.0); Hemoglobin 9.5 g/dL (12.2-16.2); Lymphocytes % (auto) 43.2 % (10.0-50.0); Mean Corpuscular Hemoglobin 27.1 pg (28.0-32.0); Mean Corpuscular Volume 82.1 fL (80.0-100.0); Monocytes % (auto) 16.3 % (0.0-12.0); Neutrophils % (auto) 36.7 % (37.0-80.0); Red Cell Distribution Width 19.6 % (11.8-14.3); White Blood Cell 4.6 10^3/uL (4.4-10.8)
[2021-11-20] MEDS: InsuLIN REG 1unit/0.01ml Soln (100units/ml) SC SCH ×4 (07:00→22:00)
[2021-11-20 07:08] LABS: BUN/Creatinine Ratio 12.1; Calcium 8.7 mg/dL (8.5-10.1); Potassium 3.5 mmol/L (3.5-5.1)
[2021-11-20] MEDS: ACCU-CHEK COMFORT CURVE STRIP VI SCH ×4 (07:12→22:00)
[2021-11-20 09:06] VITALS: BP 137/56
[2021-11-20] MEDS: DOCUSATE ORAL LIQUID 100 MG/10 ML UD GT SCH (10:09)
[2021-11-20] MEDS: PANTOPRAZOLE 40 MG/10 ML VIAL INJ IV SCH (10:09)
[2021-11-20] MEDS: SACUBITRIL-VALSARTAN 24mg/26mg TAB PO SCH ×2 (10:10→22:00)
[2021-11-20] MEDS: LABETALOL HCL 200 MG TAB PO SCH ×2 (10:10→22:00)
[2021-11-20] MEDS: FERROUS SULFATE 325mg EC TAB PO SCH (10:10)
[2021-11-20] MEDS: ASPirin 81 mg TAB PO SCH (10:10)
[2021-11-20] MEDS: ALLOPURINOL 100 MG TAB PO SCH (10:11)
[2021-11-20] MEDS: CLOPIDOGREL BISULFATE 75 MG TAB PO SCH (10:11)
[2021-11-20] MEDS: HEPARIN SODIUM (PORCINE) 5000 UNITS/ML 1ML VIAL SC SCH ×2 (10:12→22:00)
[2021-11-20 13:00] VITALS: BP 141/79
[2021-11-20 16:00] VITALS: BP 133/78
[2021-11-20] MEDS: cefTRIAXone 1GM/50ML D5W 50 ML IV SCH (17:25)
[2021-11-20] MEDS: AZITHROMYCIN 500MG/ 250ML 250 ML IV SCH (20:30)
[2021-11-20 22:00] VITALS: BP 110/77
[2021-11-20] MEDS: ATORVASTATIN 20 MG TAB PO SCH (22:00)
[2021-11-20] MEDS: AMITRIPTYLINE HCL 25 MG TAB PO SCH (22:00)
[2021-11-20] MEDS: TEMAZEPAM 15 MG CAP PO PRN (22:57)
[2021-11-21] MEDS: MORPHINE SULFATE 4 MG/ML SYR/VIAL IV PRN ×5 (03:27→22:40)
[2021-11-21] MEDS: SODIUM CHLOR 0.9% PF (SALINE LOCK) 10ML VIAL/SYR IV SCH ×3 (06:00→22:34)
[2021-11-21] MEDS: FUROSEMIDE 40 MG/4 ML VIAL IV SCH ×2 (06:35→17:40)
[2021-11-21] MEDS: InsuLIN REG 1unit/0.01ml Soln (100units/ml) SC SCH ×4 (06:36→22:49)
[2021-11-21] MEDS: ACCU-CHEK COMFORT CURVE STRIP VI SCH ×4 (06:36→22:36)
[2021-11-21 09:00] VITALS: BP 154/94
[2021-11-21] MEDS: DOCUSATE ORAL LIQUID 100 MG/10 ML UD GT SCH (09:06)
[2021-11-21] MEDS: ASPirin 81 mg TAB PO SCH (09:07)
[2021-11-21] MEDS: PANTOPRAZOLE 40 MG/10 ML VIAL INJ IV SCH (09:07)
[2021-11-21] MEDS: HEPARIN SODIUM (PORCINE) 5000 UNITS/ML 1ML VIAL SC SCH ×2 (09:08→22:37)
[2021-11-21] MEDS: LABETALOL HCL 200 MG TAB PO SCH ×2 (09:09→22:35)
[2021-11-21] MEDS: FERROUS SULFATE 325mg EC TAB PO SCH (09:09)
[2021-11-21] MEDS: SENNA 8.6 MG TAB PO SCH (09:10)
[2021-11-21] MEDS: SACUBITRIL-VALSARTAN 24mg/26mg TAB PO SCH ×2 (09:10→22:34)
[2021-11-21] MEDS: CLOPIDOGREL BISULFATE 75 MG TAB PO SCH (09:10)
[2021-11-21] MEDS: ALLOPURINOL 100 MG TAB PO SCH (09:10)
[2021-11-21] MEDS ORDERED: FLEET MINERAL OIL ENEMA 133 ML PR ONE (10:15)
[2021-11-21 13:00] VITALS: BP 160/96
[2021-11-21 17:00] VITALS: BP 131/73
[2021-11-21] MEDS: cefTRIAXone 1GM/50ML D5W 50 ML IV SCH (17:40)
[2021-11-21] MEDS: AZITHROMYCIN 500MG/ 250ML 250 ML IV SCH (20:24)
[2021-11-21 22:00] VITALS: BP 121/72
[2021-11-21] MEDS: AMITRIPTYLINE HCL 25 MG TAB PO SCH (22:34)
[2021-11-21] MEDS: ATORVASTATIN 20 MG TAB PO SCH (22:34)
[2021-11-22] MEDS: MORPHINE SULFATE 4 MG/ML SYR/VIAL IV PRN ×4 (03:34→22:28)
[2021-11-22 05:00] VITALS: BP 139/64
[2021-11-22] MEDS: ACCU-CHEK COMFORT CURVE STRIP VI SCH ×4 (06:06→22:17)
[2021-11-22] MEDS: FUROSEMIDE 40 MG/4 ML VIAL IV SCH ×2 (06:07→18:00)
[2021-11-22] MEDS: SODIUM CHLOR 0.9% PF (SALINE LOCK) 10ML VIAL/SYR IV SCH ×3 (06:07→22:15)
[2021-11-22 06:11] LABS: Basophils # (auto) 0.1 10 ^3/uL (0-0.2); Basophils % (auto) 2.5 % (0.0-2.0); Eosinophils # (auto) 0.1 10 ^3/uL (0-0.8); Eosinophils % (auto) 4.2 % (0.0-7.0); Hematocrit 29.9 % (36.0-46.0); Hemoglobin 9.9 g/dL (12.2-16.2); Lymphocytes # (auto) 1.5 10 ^3/uL (0.4-5.4); Lymphocytes % (auto) 43.5 % (10.0-50.0); Mean Corpuscular Hemoglobin 27.1 pg (28.0-32.0); Mean Corpuscular Volume 82.2 fL (80.0-100.0); Monocytes # (auto) 0.5 10 ^3/uL (0-1.3); Monocytes % (auto) 14.3 % (0.0-12.0); Neutrophils # (auto) 1.2 10 ^3/uL (1.6-8.6); Neutrophils % (auto) 35.5 % (37.0-80.0); Nucleated Red Blood Cells % 0.6 %; Red Blood Cells 3.64 10^6/uL (4.0-5.20); Red Cell Distribution Width 19.6 % (11.8-14.3); White Blood Cell 3.5 10^3/uL (4.4-10.8)
[2021-11-22] MEDS: InsuLIN REG 1unit/0.01ml Soln (100units/ml) SC SCH ×4 (06:22→22:12)
[2021-11-22 06:46] LABS: Potassium 3.5 mmol/L (3.5-5.1)
[2021-11-22 07:04] LABS: BUN/Creatinine Ratio 13.1; Calcium 8.4 mg/dL (8.5-10.1)
[2021-11-22 08:20] VITALS: BP 142/77
[2021-11-22] MEDS: SACUBITRIL-VALSARTAN 24mg/26mg TAB PO SCH ×2 (09:17→22:17)
[2021-11-22] MEDS: ASPirin 81 mg TAB PO SCH (09:18)
[2021-11-22] MEDS: CLOPIDOGREL BISULFATE 75 MG TAB PO SCH (09:18)
[2021-11-22] MEDS: ALLOPURINOL 100 MG TAB PO SCH (09:18)
[2021-11-22] MEDS: HEPARIN SODIUM (PORCINE) 5000 UNITS/ML 1ML VIAL SC SCH ×2 (09:21→22:18)
[2021-11-22] MEDS: LABETALOL HCL 200 MG TAB PO SCH ×2 (10:00→22:17)
[2021-11-22] MEDS: SENNA 8.6 MG TAB PO SCH (10:00)
[2021-11-22] MEDS: FERROUS SULFATE 325mg EC TAB PO SCH (10:00)
[2021-11-22] MEDS: DOCUSATE ORAL LIQUID 100 MG/10 ML UD GT SCH (10:00)
[2021-11-22] MEDS: PANTOPRAZOLE 40 MG/10 ML VIAL INJ IV SCH (10:00)
[2021-11-22 12:00] VITALS: BP 134/82
[2021-11-22 16:05] VITALS: BP 126/75
[2021-11-22] MEDS: cefTRIAXone 1GM/50ML D5W 50 ML IV SCH (17:00)
[2021-11-22] MEDS: AZITHROMYCIN 500MG/ 250ML 250 ML IV SCH (20:16)
[2021-11-22] MEDS: AMITRIPTYLINE HCL 25 MG TAB PO SCH (22:16)
[2021-11-22] MEDS: ATORVASTATIN 20 MG TAB PO SCH (22:16)
[2021-11-22 22:17] VITALS: BP 141/72
[2021-11-23] MEDS: MORPHINE SULFATE 4 MG/ML SYR/VIAL IV PRN ×4 (02:30→21:12)
[2021-11-23 04:37] VITALS: BP 124/70
[2021-11-23] MEDS: SODIUM CHLOR 0.9% PF (SALINE LOCK) 10ML VIAL/SYR IV SCH ×3 (06:05→22:04)
[2021-11-23] MEDS: FUROSEMIDE 40 MG/4 ML VIAL IV SCH ×2 (06:09→17:29)
[2021-11-23 06:39] LABS: Basophils # (auto) 0.1 10 ^3/uL (0-0.2); Basophils % (auto) 1.4 % (0.0-2.0); Eosinophils # (auto) 0.2 10 ^3/uL (0-0.8); Eosinophils % (auto) 4.1 % (0.0-7.0); Hematocrit 28.8 % (36.0-46.0); Hemoglobin 9.5 g/dL (12.2-16.2); Lymphocytes # (auto) 1.5 10 ^3/uL (0.4-5.4); Lymphocytes % (auto) 40.8 % (10.0-50.0); Mean Corpuscular Hemoglobin 27.4 pg (28.0-32.0); Mean Corpuscular Hgb Conc. 33.1 g/dL (32.0-36.0); Mean Corpuscular Volume 82.9 fL (80.0-100.0); Monocytes # (auto) 0.5 10 ^3/uL (0-1.3); Monocytes % (auto) 13.6 % (0.0-12.0); Neutrophils # (auto) 1.5 10 ^3/uL (1.6-8.6); Neutrophils % (auto) 40.1 % (37.0-80.0); Nucleated Red Blood Cells % 0.2 %; Red Blood Cells 3.48 10^6/uL (4.0-5.20); Red Cell Distribution Width 19.6 % (11.8-14.3); White Blood Cell 3.8 10^3/uL (4.4-10.8)
[2021-11-23 06:50] LABS: Calcium 8.2 mg/dL (8.5-10.1); Potassium 3.5 mmol/L (3.5-5.1)
[2021-11-23 06:52] LABS: BUN/Creatinine Ratio 13.7
[2021-11-23] MEDS: ACCU-CHEK COMFORT CURVE STRIP VI SCH ×4 (06:53→22:03)
[2021-11-23] MEDS: InsuLIN REG 1unit/0.01ml Soln (100units/ml) SC SCH ×4 (06:54→22:02)
[2021-11-23 09:00] VITALS: BP 129/76
[2021-11-23] MEDS: HEPARIN SODIUM (PORCINE) 5000 UNITS/ML 1ML VIAL SC SCH ×2 (09:41→22:02)
[2021-11-23] MEDS: ALLOPURINOL 100 MG TAB PO SCH (09:44)
[2021-11-23] MEDS: SENNA 8.6 MG TAB PO SCH (09:44)
[2021-11-23] MEDS: CLOPIDOGREL BISULFATE 75 MG TAB PO SCH (09:45)
[2021-11-23] MEDS: LABETALOL HCL 200 MG TAB PO SCH ×2 (09:45→22:03)
[2021-11-23] MEDS: ASPirin 81 mg TAB PO SCH (09:46)
[2021-11-23] MEDS: SACUBITRIL-VALSARTAN 24mg/26mg TAB PO SCH ×2 (09:46→21:13)
[2021-11-23] MEDS: FERROUS SULFATE 325mg EC TAB PO SCH (09:46)
[2021-11-23] MEDS: PANTOPRAZOLE 40 MG/10 ML VIAL INJ IV SCH (09:47)
[2021-11-23] MEDS: DOCUSATE ORAL LIQUID 100 MG/10 ML UD GT SCH (09:47)
[2021-11-23 13:00] VITALS: BP 144/86
[2021-11-23 17:00] VITALS: BP 126/84
[2021-11-23] MEDS: cefTRIAXone 1GM/50ML D5W 50 ML IV SCH (17:00)
[2021-11-23] MEDS: AZITHROMYCIN 500MG/ 250ML 250 ML IV SCH (20:51)
[2021-11-23 22:00] VITALS: BP 151/69
[2021-11-23] MEDS: ATORVASTATIN 20 MG TAB PO SCH (22:04)
[2021-11-23] MEDS: AMITRIPTYLINE HCL 25 MG TAB PO SCH (22:04)
[2021-11-24] MEDS: MORPHINE SULFATE 4 MG/ML SYR/VIAL IV PRN ×2 (01:25→08:31)
[2021-11-24 05:29] VITALS: BP 144/82
[2021-11-24] MEDS: ACCU-CHEK COMFORT CURVE STRIP VI SCH ×4 (06:03→21:50)
[2021-11-24] MEDS: SODIUM CHLOR 0.9% PF (SALINE LOCK) 10ML VIAL/SYR IV SCH ×3 (06:03→21:50)
[2021-11-24] MEDS: FUROSEMIDE 40 MG/4 ML VIAL IV SCH ×2 (06:03→17:52)
[2021-11-24] MEDS: InsuLIN REG 1unit/0.01ml Soln (100units/ml) SC SCH ×4 (06:03→22:00)
[2021-11-24 06:07] LABS: Basophils # (auto) 0.1 10 ^3/uL (0-0.2); Basophils % (auto) 1.7 % (0.0-2.0); Eosinophils # (auto) 0.1 10 ^3/uL (0-0.8); Eosinophils % (auto) 4.2 % (0.0-7.0); Hematocrit 30.8 % (36.0-46.0); Lymphocytes # (auto) 1.7 10 ^3/uL (0.4-5.4); Lymphocytes % (auto) 49.1 % (10.0-50.0); Mean Corpuscular Hemoglobin 27.7 pg (28.0-32.0); Mean Corpuscular Hgb Conc. 32.4 g/dL (32.0-36.0); Mean Corpuscular Volume 85.4 fL (80.0-100.0); Monocytes # (auto) 0.4 10 ^3/uL (0-1.3); Monocytes % (auto) 12.5 % (0.0-12.0); Neutrophils # (auto) 1.1 10 ^3/uL (1.6-8.6); Neutrophils % (auto) 32.5 % (37.0-80.0); Nucleated Red Blood Cells % 0.2 %; Red Cell Distribution Width 19.7 % (11.8-14.3); White Blood Cell 3.5 10^3/uL (4.4-10.8)
[2021-11-24 06:17] LABS: Potassium 3.6 mmol/L (3.5-5.1)
[2021-11-24 06:25] LABS: Albumin 2.7 g/dL (3.4-5.0); BUN/Creatinine Ratio 14.9; Calcium 8.3 mg/dL (8.5-10.1)
[2021-11-24 06:28] LABS: Bilirubin, Total 0.4 mg/dL (0.2-1.0); Total Protein 7.5 g/dL (6.4-8.2)
[2021-11-24 08:30] VITALS: BP 157/90
[2021-11-24 08:44] VITALS: BP 156/90
[2021-11-24] MEDS: CLOPIDOGREL BISULFATE 75 MG TAB PO SCH (10:30)
[2021-11-24] MEDS: FERROUS SULFATE 325mg EC TAB PO SCH (10:30)
[2021-11-24] MEDS: ALLOPURINOL 100 MG TAB PO SCH (10:30)
[2021-11-24] MEDS: ASPirin 81 mg TAB PO SCH (10:30)
[2021-11-24] MEDS: LABETALOL HCL 200 MG TAB PO SCH ×2 (10:30→21:42)
[2021-11-24] MEDS: SACUBITRIL-VALSARTAN 24mg/26mg TAB PO SCH ×2 (10:30→21:41)
[2021-11-24] MEDS: SENNA 8.6 MG TAB PO SCH (10:30)
[2021-11-24] MEDS: PANTOPRAZOLE 40 MG/10 ML VIAL INJ IV SCH (10:30)
[2021-11-24] MEDS: HEPARIN SODIUM (PORCINE) 5000 UNITS/ML 1ML VIAL SC SCH ×2 (10:30→21:50)
[2021-11-24] MEDS: DOCUSATE ORAL LIQUID 100 MG/10 ML UD GT SCH (10:30)
[2021-11-24 13:00] VITALS: BP 152/88
[2021-11-24] MEDS: MORPHINE SULFATE INJECTION 2 MG/ML SYRG IV PRN ×3 (13:25→23:04)
[2021-11-24 17:00] VITALS: BP 136/95
[2021-11-24] MEDS: cefTRIAXone 1GM/50ML D5W 50 ML IV SCH (17:30)
[2021-11-24] MEDS: AZITHROMYCIN 500MG/ 250ML 250 ML IV SCH (20:38)
[2021-11-24] MEDS: ATORVASTATIN 20 MG TAB PO SCH (21:41)
[2021-11-24] MEDS: AMITRIPTYLINE HCL 25 MG TAB PO SCH (21:50)
[2021-11-24 22:00] VITALS: BP 142/68
[2021-11-25] MEDS: MORPHINE SULFATE INJECTION 2 MG/ML SYRG IV PRN (03:13)
[2021-11-25 05:00] VITALS: BP 117/61
[2021-11-25] MEDS: SODIUM CHLOR 0.9% PF (SALINE LOCK) 10ML VIAL/SYR IV SCH (05:39)
[2021-11-25] MEDS: FUROSEMIDE 40 MG/4 ML VIAL IV SCH (05:40)
[2021-11-25] MEDS: ACCU-CHEK COMFORT CURVE STRIP VI SCH (06:12)
[2021-11-25] MEDS: InsuLIN REG 1unit/0.01ml Soln (100units/ml) SC SCH (06:13)
== END 2021-11-25 06:45 | disposition short-term general hospital (02) | DRG 192 ==
LOC: EDBD 23:33 → ER 23:33 → TELE 11-13 08:56 → TELE-EAST 11-13 13:24
PROVIDERS: ADMIT Registered Nurse; ATTEND Internal Medicine Pulmonary Disease
PROC: 4A023N7 Measurement of Cardiac Sampling and Pressure, Left Heart, Percutaneous Approach (ICD-10-PCS; principal; 2021-11-18)
PROC: B211YZZ Fluoroscopy of Multiple Coronary Arteries using Other Contrast (ICD-10-PCS; 2021-11-18)
DX: I13.0 Hypertensive heart and chronic kidney disease with heart failure and stage 1 through stage 4 chronic kidney disease, or unspecified chronic kidney disease (principal); J96.01 Acute respiratory failure with hypoxia; N17.0 Acute kidney failure with tubular necrosis; J18.9 Pneumonia, unspecified organism; I27.20 Pulmonary hypertension, unspecified; D63.1 Anemia in chronic kidney disease; E11.22 Type 2 diabetes mellitus with diabetic chronic kidney disease; N18.4 Chronic kidney disease, stage 4 (severe); E88.09 Other disorders of plasma-protein metabolism, not elsewhere classified; I50.23 Acute on chronic systolic (congestive) heart failure; I16.0 Hypertensive urgency; K21.9 Gastro-esophageal reflux disease without esophagitis; B19.20 Unspecified viral hepatitis C without hepatic coma; E11.65 Type 2 diabetes mellitus with hyperglycemia; Z20.822 Contact with and (suspected) exposure to COVID-19; E66.01 Morbid (severe) obesity due to excess calories; I25.10 Atherosclerotic heart disease of native coronary artery without angina pectoris; F32.9 Major depressive disorder, single episode, unspecified; G89.4 Chronic pain syndrome; Z79.01 Long term (current) use of anticoagulants; Z79.82 Long term (current) use of aspirin; Z79.4 Long term (current) use of insulin; Z79.899 Other long term (current) drug therapy; Z83.3 Family history of diabetes mellitus; Z82.49 Family history of ischemic heart disease and other diseases of the circulatory system; Z68.43 Body mass index [BMI] 50.0-59.9, adult
CPT/HCPCS: 36415; 71045; 74018; 76775; 80048; 80053; 81001; 82306; 82570; 82962; 83540; 83550; 83880; 83970; 84100; 84156; 84300; 84484; 84550; 85025; 85610; 85730; 86803; 86850; 86900; 86901; 93005; 93970; 94640; 96374; 99152; 99153; C9113; G0378; J0696; J1815; J2001; J2250; J2405; Q9967

== ENCOUNTER 2022-09-26 21:40 | Emergency (ER) | payer MEDICARE, MEDICAID ==
[~2022-09-26] VITALS: Ht 180.3 cm; Wt 155.0 kg
[2022-09-26 19:50] VITALS: BP 142/112
[2022-09-26] MEDS ORDERED: SODIUM BICARBONATE 8.4% INJ 50ML SYRINGE IV ONE (21:41)
[2022-09-26] MEDS ORDERED: EPINEPHrine HCL 1 MG/10 ML SYRG IV ONE (21:41)
[2022-09-26] MEDS ORDERED: ETOMIDATE (2MG/ML) 20ML VIAL IV ONE (21:45)
[2022-09-26] MEDS ORDERED: SUCCINYLCHOLINE CHLORIDE 20 MG/ML 10ML VIAL IV ONE (21:46)
[2022-09-26] MEDS ORDERED: NALOXONE HCL 1MG/ML 2ML SYRINGE ONE ×3 (21:46→22:44)
[2022-09-26] MEDS ORDERED: MIDAZOLAM DRIP 50 mg/50mL 50 ML IV ONE (21:59)
[2022-09-26] MEDS ORDERED: MIDAZOLAM HCL 2MG/2ML 2ml VIAL (1mg/ml) ONE (21:59)
[2022-09-26] MEDS ORDERED: fentaNYL CITRATE 100 MCG/2 ML VL ONE (22:12)
[2022-09-26] MEDS ORDERED: PROPOFOL 100 ML IV ONE (22:19)
[2022-09-26] MEDS ORDERED: ATROPINE SULF 0.5 MG/5ML SYR ONE (22:32)
[2022-09-26] MEDS ORDERED: ATROPINE SULFATE 0.4 MG/1 ML VIAL ONE (22:33)
[2022-09-26] MEDS ORDERED: NOREPINEPHRINE 8 MG/250ML KIT 250 ML IV ONE (22:38)
[2022-09-26 22:50] VITALS: BP 59/24
[2022-09-27] MEDS ORDERED: MIDAZOLAM DRIP 50 mg/50mL 50 ML IV SCH (03:15)
[2022-09-27] MEDS ORDERED: ATROPINE SULF 1 MG/10ml SYR IV ONE ×2 (03:15)
[2022-09-27] MEDS ORDERED: SUCCINYLCHOLINE CHLORIDE 20 MG/ML 10ML VIAL IV ONE (03:15)
[2022-09-27] MEDS ORDERED: MIDAZOLAM HCL 2MG/2ML 2ml VIAL (1mg/ml) IV ONE (03:15)
[2022-09-27] MEDS ORDERED: PROPOFOL 100 ML IV SCH (03:15)
[2022-09-27] MEDS ORDERED: fentaNYL CITRATE 100 MCG/2 ML VL IV ONE (03:15)
[2022-09-27] MEDS ORDERED: NALOXONE HCL 1MG/ML 2ML SYRINGE IV ONE ×3 (03:15)
[2022-09-27] MEDS ORDERED: ETOMIDATE (2MG/ML) 20ML VIAL IV ONE (03:15)
== END 2022-09-26 23:06 ==
LOC: ER 21:40 → EDBD 21:40 → ER 23:06
DX: I46.9 Cardiac arrest, cause unspecified (principal); R41.82 Altered mental status, unspecified; R06.89 Other abnormalities of breathing; I11.0 Hypertensive heart disease with heart failure; I50.9 Heart failure, unspecified
CPT/HCPCS: 31500; 36600; 82805; 92950; 96374; 96375; 99285; J0171; J0330; J0461; J2250; J2310; J2704; J3010; 94002